=== PATIENT | female | born 1970 | race Caucasian/White ===

== ENCOUNTER 2020-09-18 07:02 | Outpatient (NON) | payer OTHER, SELFPAY ==
[2020-09-18 19:14] LABS: SARS-CoV-2 RNA PCR Negative
== END 2020-09-18 07:03 ==
PROVIDERS: Visit Provider Internal Medicine
DX: Z20.828 Contact with and (suspected) exposure to other viral communicable diseases (principal); R09.89 Other specified symptoms and signs involving the circulatory and respiratory systems
CPT/HCPCS: 87635; C9803; U0003

== ENCOUNTER → 2021-04-04 08:05 | Outpatient (CLI) | payer OTHER, SELFPAY ==
--- NOTE | ~2021-04-04 | MR_ITS ---
EXAMINATION: MR knee LT wo con DATE: 04/04/2021 08:54 INDICATION: Left knee pain TECHNIQUE: Magnetic resonance imaging (MRI) of the left knee was performed without intravenous contra st. Sequences included coronal PD-weighted FSE, coronal PD-weighted FS FSE, sagittal T2-weighted FSE , sagittal PD-weighted FS FSE and axial PD weighted fat saturated FSE. COMPARISON: None. FINDINGS: Medial compartment: Medial meniscus is normal. Chondral ulceration and fissuring along the anterior to central weightbear ing medial femoral condyle with greater than 50% the cartilage thickness but without degenerative sub chondral changes. Cartilage at the posterior weightbearing medial femoral condyle and at the medial t ibial plateau is normal. Lateral compartment: Lateral meniscus is normal. Small region of deep chondral fissuring involving greater than 50% the ca rtilage thickness at the central weightbearing lateral femoral condyle. Remaining cartilage in the la teral compartment is normal. Patellofemoral compartment: Partial-thickness patellar cartilage loss with deep fissuring With small focus of subarticular edema at the patellar apical ridge and medial aspect of the lateral facet. Partial-thickness chondral ulceration and deeper fissuring without degenerative subchondral ch anges at the trochlear groove and immediately adjacent medial and lateral trochlea. Ligaments and tendons: Anterior and posterior cruciate ligaments are normal. The medial collateral ligament and fibular rubin ateral ligament complex are normal. The extensor mechanism is normal. The visualized medial and later al hamstring tendons as well as the iliotibial band are normal. Fluid: Physiologic amount of fluid in the joint space. No loose osteochondral bodies identified. Osseous/other: Normal marrow signal. No fracture or pathologic marrow replacing process. IMPRESSION: 1. Mild osteoarthritis with regions of chondral ulceration and deep fissuring in all 3 compartments o f the knee. 2. Normal menisci, stabilizing ligaments and tendons. Reviewed, dictated and finalized at location A. IMPRESSION: 1. Mild osteoarthritis with regions of chondral ulceration and deep fissuring i n all 3 compartments of the knee. 2. Normal menisci, stabilizing ligaments and tendons.
== END ==
PROVIDERS: PCP Family Medicine Sports Medicine; Visit Provider Internal Medicine
DX: M17.12 Unilateral primary osteoarthritis, left knee (principal)
CPT/HCPCS: 73721